=== PATIENT | female | born 1985 | race American Indian/Alaskan Native ===

== ENCOUNTER 2018-04-26 14:51 | Emergency (ER) | payer SELFPAY ==
[2018-04-26 14:51] VITALS: BMI 24.0
[2018-04-26 15:09] VITALS: O2SAT 97
[2018-04-26] MEDS ORDERED: Lidocaine 5% Patch TD STA (15:41)
[2018-04-26] MEDS ORDERED: Acetaminophen-Codeine 300/30 mg Tab PO STA (15:41)
--- NOTE | 2018-04-26 15:55 | C.PDOC ---
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 Patient states she lost her insurance and was once on narcotics. Since losing insurance, patient is only on NSAIDs but had to stop as of late, secondary to GI bleed. She states tylenol is not working for the pain. Patient denies new injury or trauma. Time Seen by Provider: 04/26/18 15:19 Chief Complaint (Nursing): Pain, Chronic History Per: Patient History/Exam Limitations: no limitations Onset/Duration Of Symptoms: Days Current Symptoms Are (Timing): Still Present Past Medical History Reviewed: Historical Data, Nursing Documentation, Vital Signs Vital Signs: Last Vital Signs Temp 98.5 F 04/26/18 15:06 Pulse 112 H 04/26/18 15:06 Resp 22 04/26/18 15:06 BP 135/93 H 04/26/18 15:06 Pulse Ox 97 04/26/18 15:06 - Medical History PMH: Anxiety, Asthma, Bipolar Disorder, Depression Denies: Diabetes, Hepatitis, HIV, HTN, Chronic Kidney Disease, Seizures, Sexually Transmitted Disease Family History: States: No Known Family Hx - Social History Hx Alcohol Use: No Hx Substance Use: No (pt denies) Review Of Systems Except As Marked, All Systems Reviewed And Found Negative. Musculoskeletal: Positive for: Other (Hip Pain) Physical Exam - Physical Exam Appears: Non-toxic, No Acute Distress Skin: Normal Color, Warm, Dry Head: Atraumatic, Normacephalic Eye(s): bilateral: Normal Inspection Oral Mucosa: Moist Neck: Supple Cardiovascular: Rhythm Regular, No Murmur Respiratory: Normal Breath Sounds, No Rales, No Rhonchi, No Wheezing Gastrointestinal/Abdominal: Soft, No Tenderness Extremity: Tenderness (to bilateral lateral hips), No Swelling (or redness) Extremity: Bilateral: Normal Color And Temperature, Normal ROM Neurological/Psych: Oriented x3, Normal Speech ED Course And Treatment O2 Sat by Pulse Oximetry: 97 (RA) Pulse Ox Interpretation: Normal - Other Rad Hip XR X-Ray: Interpreted by Me Interpretation: Preliminary reading, no fracture. Hip/Pelvis XR X-Ray: Read By Radiologist Interpretation: Findings: Pelvis is rotated and in suboptimal position limiting evaluation. Right hip is internally rotated. The left pubic symphysis appears rotated and higher in alignment in comparison to the right pubic symphysis which is likely related to patient positioning. Clinical correlation. Screw tracks seen within the right proximal femur. Subchondral cyst seen within left proximal femoral head. Mild sclerosis of the right SI joint. Impression: Pel vis is rotated and in suboptimal position limiting evaluation. Right hip is internally rotated. The left pubic symphysis appears rotated and higher in alignment in comparison to the right pubic symphysis which is likely related to patient positioning. Clinical correlation. Screw tracks seen within the right proximal femur. Subchondral cyst seen within left proximal femoral head. Mild sclerosis of the right SI joint. If pain persists, correlation with MRI may be helpful. This case was placed in the PA review folder. Medical Decision Making Medical Decision Making: Impression: Hip Pain Plan: --Hip XR --POC --Lidoderm --Tylenol/Codeine PO 1645 - patient states improvement. Will discharge home to follow up with medical clinic within 2 days. Disposition Counseled Patient/Family Regarding: Studies Performed, Diagnosis, Need For Followup, Rx Given - Disposition Referrals: [facility] [Outside] Disposition: HOME/ ROUTINE Disposition Time: 16:46 Condition: STABLE Additional Instructions: follow up with medical clinic within 2 days call to make an appointment take medication as needed for pain return to ER if symptoms worsens or progress Prescriptions: Acetaminophen/Codeine [Tylenol/Codeine 300 MG/30 MG] 1 tab PO Q6H PRN #5 tab PRN Reason: Pain, Severe (8-10) Lidocaine 5% [Lidoderm] 1 ea TD DAILY PRN #10 patch PRN Reason: Pain, Moderate (4-7) predniSONE [predniSONE Tab] 50 mg PO DAILY #3 tab Instructions: Hip Pain (DC) Forms: [facility] (Dutch), General Discharge Instructions - Clinical Impression Clinical Impression: Hip pain - Scribe Statement The provider has reviewed the documentation as recorded by the Elif Harkins Provider Attestation: All medical record entries made by the Nelidaibcaprice were at my direction and personally dictated by me. I have reviewed the chart and agree that the record accurately reflects my personal performance of the history, physical exam, medical decision making, and the department course for this patient. I have also personally directed, reviewed, and agree with the discharge instructions and disposition.
[2018-04-26] MEDS ORDERED: Lidocaine 5% Patch TD ONE (16:04)
[2018-04-26] MEDS ORDERED: Acetaminophen-Codeine 300/30 mg Tab PO ONE (16:04)
--- NOTE | 2018-04-26 17:07 | RAD ---
Pelvis and bilateral hips three views HISTORY: Pain. Comparison: None available. Findings: Pelvis is rotated and in suboptimal position limiting evaluation. Right hip is internally rotated. The left pubic symphysis appears rotated and higher in alignment in comparison to the right pubic symphysis which is likely related to patient positioning. Clinical correlation. Screw tracks seen within the right proximal femur. Subchondral cyst seen within left proximal femoral head. Mild sclerosis of the right SI joint. Impression: Pelvis is rotated and in suboptimal position limiting evaluation. Right hip is internally rotated. The left pubic symphysis appears rotated and higher in alignment in comparison to the right pubic symphysis which is likely related to patient positioning. Clinical correlation. Screw tracks seen within the right proximal femur. Subchondral cyst seen within left proximal femoral head. Mild sclerosis of the right SI joint. If pain persists, correlation with MRI may be helpful. This case was placed in the PA review folder.
[2018-04-26 17:12] VITALS: BP 133/87; PULSE 90; RESP 18; TEMP 97.6
== END 2018-04-26 17:13 | disposition home or self-care (01) ==
LOC: C.ER 14:51
DX: M25.552 Pain in left hip (principal); M25.551 Pain in right hip

== ENCOUNTER 2018-08-24 00:01 | Emergency (ER) | payer SELFPAY ==
[2018-08-24 00:01] VITALS: BMI 24.0
[2018-08-24 00:19] VITALS: O2SAT 98
[2018-08-24] MEDS ORDERED: Sodium Chloride 0.9% 500 ML IV ONE (01:35)
[2018-08-24 02:24] LABS: BASO % 0.3 % (0.0-2.0); EOS # 0.7 K/uL (0.0-0.7); EOS % 4.8 % (0.0-4.0); LYMPH # 2.9 K/uL (1.0-4.3); MEAN CELL VOLUME 70.2 fL (81.0-99.0); MEAN CORPUSCULAR HEMOGLOBIN 22.9 pg (27.0-31.0); MEAN CORPUSCULAR HGB CONC 32.6 g/dL (33.0-37.0); MEAN PLATELET VOLUME 8.1 fL (7.2-11.7); MONO # 0.6 K/uL (0.0-0.8); MONO % 4.1 % (0.0-10.0); NEUT # 10.1 K/uL (1.8-7.0); NEUT % 70.8 % (50.0-75.0); RBC 4.38 Mil/uL (3.80-5.20); RED CELL DISTRIBUTION WIDTH 18.1 % (11.5-14.5); WHITE BLOOD COUNT 14.3 K/uL (4.8-10.8)
[2018-08-24 02:31] LABS: SQUAMOUS EPITHIAL 5 /hpf (0-5); URINE BILIRUBIN NEGATIVE (NEGATIVE); URINE BLOOD 1+ (NEGATIVE); URINE CLARITY Clear (Clear); URINE COLOR Yellow (YELLOW); URINE GLUCOSE (UA) NORMAL (Normal); URINE LEUKOCYTE ESTERASE NEG Leu/uL (Negative); URINE PROTEIN NEGATIVE (NEGATIVE); URINE UROBILINOGEN NORMAL mg/dL (0.2-1.0)
[2018-08-24 02:43] LABS: ALB/GLOB RATIO 1.3 (1.0-2.1); ALBUMIN 3.9 g/dL (3.5-5.0); ALT/SGPT 14 U/L (9-52); AST/SGOT 28 U/L (14-36); BLOOD UREA NITROGEN 21 mg/dL (7-17); CALCIUM 8.2 mg/dl (8.6-10.4); GFR NON-AFRICAN AMERICAN > 60; LIPASE 93 U/L (23-300)
[2018-08-24 03:07] LABS: HCG,QUALITATIVE URINE NEGATIVE (NEGATIVE)
[2018-08-24] MEDS ORDERED: Iodixanol 320 MG/ML 100 ML BOTTLE IV ONE (04:20)
--- NOTE | 2018-08-24 04:32 | C.PDOC ---
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 Patient states that the pain came suddenly while she was laying in bed. She describes the pain as stabbing. She also complains of intermittent nausea. She denies fever, vomiting, diarrhea, bloody stools, urinary symptoms, and vaginal bleeding/ discharge. Chief Complaint (Nursing): Abdominal Pain History Per: Patient History/Exam Limitations: no limitations Onset/Duration Of Symptoms: Mins (45), Sudden Onset Current Symptoms Are (Timing): Still Present Location Of Pain/Discomfort: RUQ Radiation Of Pain To:: Flank (right) Quality Of Discomfort: Stabbing, "Pain" Associated Symptoms: Nausea, Back Pain. denies: Vomiting, Diarrhea, Urinary Symptoms Exacerbating Factors: None Alleviating Factors: None Abnormal Vaginal Bleeding: No Past Medical History Reviewed: Historical Data, Nursing Documentation, Vital Signs Vital Signs: Last Vital Signs Temp 98.8 F 08/24/18 00:14 Pulse 120 H 08/24/18 00:14 Resp 18 08/24/18 00:14 BP 115/89 08/24/18 00:14 Pulse Ox 98 08/24/18 00:14 Primary Care Provider: FAMILY PROVIDER,NO - Medical History PMH: Anxiety, Asthma, Bipolar Disorder, Depression, Gastrointestinal Ulcer Denies: Diabetes, Hepatitis, HIV, HTN, Chronic Kidney Disease, Seizures, Sexually Transmitted Disease Surgical History: No Surg Hx Family History: States: Unknown Family Hx - Social History Hx Alcohol Use: Yes Hx Substance Use: No (pt denies) - Immunization History Hx Tetanus Toxoid Vaccination: Yes Hx Influenza Vaccination: No Hx Pneumococcal Vaccination: Yes Review Of Systems Constitutional: Negative for: Fever, Chills, Weakness Gastrointestinal: Positive for: Nausea, Abdominal Pain (right upper quadrant). Negative for: Vomiting, Diarrhea Genitourinary: Negative for: Dysuria, Frequency, Hematuria, Vaginal Discharge, Vaginal Bleeding Musculoskeletal: Positive for: Back Pain (right flank pain) Physical Exam - Physical Exam Appears: Well, Non-toxic, No Acute Distress Skin: Normal Color, Warm, Dry Head: Atraumatic, Normacephalic Eye(s): bilateral: Normal Inspection Oral Mucosa: Moist Neck: Normal ROM, Supple Chest: Symmetrical, No Deformity Cardiovascular: Rhythm Regular, No Murmur Respiratory: No Accessory Muscle Use, No Rales, No Rhonchi, No Wheezing Gastrointestinal/Abdominal: Soft, Tenderness (right upper quadrant), No Distention, No Guarding, No Rebound Back: CVA Tenderness (right-sided) Extremity: Capillary Refill (<2 seconds) Extremity: Bilateral: Atraumatic, Normal Color And Temperature, Normal ROM Pulses: Left Radial: Normal, Right Radial: Normal Neurological/Psych: Oriented x3, Normal Speech, Normal Cognition Gait: Steady ED Course And Treatment - Laboratory Results Result Diagrams: 08/24/18 02:20 08/24/18 02:20 Lab Results: Total Bilirubin 0.3 mg/dL (0.2-1.3) 08/24/18 02:20 AST 28 U/L (14-36) 08/24/18 02:20 ALT 14 U/L (9-52) 08/24/18 02:20 Alkaline Phosphatase 55 U/L (38-126) 08/24/18 02:20 Total Protein 7.0 g/dL (6.3-8.3) 08/24/18 02:20 Albumin 3.9 g/dL (3.5-5.0) 08/24/18 02:20 Globulin 3.0 gm/dL (2.2-3.9) 08/24/18 02:20 Albumin/Globulin Ratio 1.3 (1.0-2.1) 08/24/18 02:20 Lipase 93 U/L (23-300) 08/24/18 02:20 Urine Color Yellow (YELLOW) 08/24/18 02:20 Urine Clarity Clear (Clear) 08/24/18 02:20 Urine pH 6.0 (5.0-8.0) 08/24/18 02:20 Ur Specific [place] 1.027 (1.003-1.030) 08/24/18 02:20 Urine Protein Negative mg/dL (NEGATIVE) 08/24/18 02:20 Urine Glucose (UA) Normal mg/dL (Normal) 08/24/18 02:20 Urine Ketones Negative mg/dL (NEGATIVE) 08/24/18 02:20 Urine Blood 1+ (NEGATIVE) H 08/24/18 02:20 Urine Nitrate Negative (NEGATIVE) 08/24/18 02:20 Urine Bilirubin Negative (NEGATIVE) 08/24/18 02:20 Urine Urobilinogen Normal mg/dL (0.2-1.0) 08/24/18 02:20 Ur Leukocyte Esterase Neg Jennifer/uL (Negative) 08/24/18 02:20 Urine WBC (Auto) 1 /hpf (0-5) 08/24/18 02:20 Urine RBC (Auto) 5 /hpf (0-3) H 08/24/18 02:20 Ur Squamous Epith Cells 5 /hpf (0-5) 08/24/18 02:20 Urine HCG, Qual Negative (NEGATIVE) 08/24/18 02:20 Urine HCG, Qual Negative (NEGATIVE) 08/24/18 02:20 O2 Sat by Pulse Oximetry: 98 (in RA) Pulse Ox Interpretation: Normal - CT Scan/US CT Abdomen/Pelvis Other Rad Studies (CT/US): Read By Radiologist CT/US Interpretation: IMPRESSION: 1. Severe enteritis. Infectious and inflam matory etiologies are considered. Consider consultation with GI service. 2. Trace amount of perihepatic ascites is seen. . Electronically signed on August 24, 2018 5:04:17 AM EDT by: Abdiaziz Wylie M.D., M.B.A., Certified By [employer]. Fellowship Trained MRI and CT Specialist Progress Note: CMP, CBC, lipase, B-HCG, and UA ordered for patient. Patient given toradol and zofran. Patient notes some improvement but there is still some dull pain that is worse with palpation. Abdomen/ Pelvis CT w/ contrast ordered. Abd/pelvis CT report reviewed and d/w pt, VSS. Pt advised to follow up with PMD and return precautions discussed. Pt understand and agreed to plan. Reassessment Condition: Improved Disposition - Disposition Disposition: HOME/ ROUTINE Disposition Time: 05:28 Condition: STABLE Additional Instructions: Please follow up with PMD or in clinic Take medications as directed Return to ER if symptoms worsen Prescriptions: Ciprofloxacin [Cipro] 1 tab PO BID #14 tab metroNIDAZOLE [Flagyl] 500 mg PO BID #14 tab traMADol [Ultram] 50 mg PO TID #14 tab Instructions: Acute Abdomen (Belly Pain), Adult (DC), Inflammatory Bowel Disease (DC) Forms: [employer] (Gabonese) - Clinical Impression Clinical Impression: Abdominal pain, Enteritis - PA / FIELD LABORER / Resident Statement MD/DO has reviewed & agrees with the documentation as recorded. (Yamile Ahn) - Scribe Statement The provider has reviewed the documentation as recorded by the Scribe (Yamile Ahn) All medical record entries made by the Scribe were at my direction and personally dictated by me. I have reviewed the chart and agree that the record accurately reflects my personal performance of the history, physical exam, medical decision making, and the department course for this patient. I have also personally directed, reviewed, and agree with the discharge instructions and disposition.
[2018-08-24] MEDS ORDERED: Tramadol 25 mg PO STA (05:49)
[2018-08-24 05:51] VITALS: BP 118/72; PULSE 88; RESP 20; TEMP 98
--- NOTE | 2018-08-24 16:03 | CT ---
Date of service: 08/24/2018 PROCEDURE: CT Abdomen and Pelvis with contrast HISTORY: RUQ pain, Rt flank pain COMPARISON: None. TECHNIQUE: Contrast dose: 100 mL of Visipaque 320 intravenously. Axial and reformatted coronal and sagittal CT images of the abdomen and pelvis were obtained after IV contrast administration. Radiation dose: Total exam DLP = 411.46 mGy-cm. This CT exam was performed using one or more of the following dose reduction techniques: Automated exposure control, adjustment of the mA and/or kV according to patient size, and/or use of iterative reconstruction technique. FINDINGS: LOWER THORAX: Unremarkable. LIVER: Unremarkable. No gross lesion or ductal dilatation. GALLBLADDER AND BILE DUCTS: Unremarkable. PANCREAS: Unremarkable. No gross lesion or ductal dilatation. SPLEEN: Unremarkable. ADRENALS: Unremarkable. No mass. KIDNEYS AND URETERS: Unremarkable. No hydronephrosis. No solid mass. VASCULATURE: Unremarkable. No aortic aneurysm. No aortic atherosclerotic calcification or mural plaque present. BOWEL: There are mild dilated small bowel loops demonstrate diffuse wall thickening suspicious for enteritis. Mild constipation is noted. No evidence of high-grade bowel obstruction. APPENDIX: No definite evidence of appendicitis. PERITONEUM: Trace amount of free fluid noted in the abdomen. LYMPH NODES: Unremarkable. No enlarged lymph nodes. BLADDER: Unremarkable. REPRODUCTIVE: Unremarkable. BONES: No acute fracture. OTHER FINDINGS: None. IMPRESSION: Findings suspicious for enteritis. No evidence of bowel obstruction. Mild constipation. Preliminary report was submitted by [facility] Radiology contains concordant findings.
== END 2018-08-24 05:49 | disposition home or self-care (01) ==
LOC: C.ER 00:01
DX: K52.9 Noninfective gastroenteritis and colitis, unspecified (principal); R10.11 Right upper quadrant pain
CPT/HCPCS: 74177; 80053; 81001; 83690; 84703; 85025; 96374; 96375; 99285; J1885; J2405; J7040; Q9967